=== PATIENT | female | born 1985 | race Caucasian/White ===

== ENCOUNTER 2016-05-08 15:58 | Inpatient (IN) | payer OTHER ==
[~2016-05-08] VITALS: Ht 170.2 cm; Wt 81.6 kg
[~2016-05-08 15:58] MED LIST: ABILIFY10 M1 PO; DELTASONE20 MG PO; GABAPENTIN300 M2 PO; OMEPRAZOLE40 M1 PO; WELLBUTRIN SR150 M1 PO
--- NOTE | 2016-05-08 16:10 | ED PSY CRISIS COLLATERAL NOTE ---
Collateral Note Collateral Note Family/Inform/Gabi Contacts: Pt's out pt provider Ede Coburn Aprn informed that pt is coming to the ED and sent the following clinical in an email for collateral information: "Rani Pastrana is a 31yo MCF with a h/o ETOH use d/o in remission (Since ) , Bipolar Disorder, and PTSD. She has no inpatient history but was in Dual dx IOP from 09/10-11/11. She called me today from her job and states she is feeling increasingly manic with decreased sleep. She has had urges to cut and to consume alcohol which she has been able to keep at bay but feels less able to do so. She was recently stated on a low dose of Tegretol when I saw her on 05/03 and during our conversation today we had agreed to increase to 200mg BID with the hopes of avoiding hospitalization. At that point the safety plan was to contact her sponsor or call 911/go to ED if urges returned/got worse. She subsequently spoke to her sponsor who convinced her to go to the hospital after work for crisis eval and then called me. She anticipates she will arrive at approximately 1600. No h/o of suicide attempt but was a cutter for most of her teens and these behaviors returned briefly in summer. Her father attempted suicide and so did maternal uncle. Unknown if father's by OD was intentional or accidental. Of note her significant other Sage was recently incarcerated and the patient is now in the home alone. I feel she would benefit from inpatient stay or IOP at this time. While she may be a soft admit she definitely needs a med adjustment so inpatient may be safer. She is not endorsing SI but rather is high risk for ETOH relapse and cutting behaviors. Ede Coburn MA, MSN, FUEL MANAGER"
--- NOTE | 2016-05-08 16:12 | NUR ---
PT TO ED C/O "MANIC EPISODE" SINCE SUNDAY. STATES SHE HAS THOUGHTS OF WANTING TO HURT HERSELF "I COULD VERY EASILY CUT MYSELF". DENIES HI. STATES THIS HAPPENED LAST AUGUST WELL. DENIES ETOH OR DRUG USE, STATES CLEAN FOR 8 MONTHS. PT SPOKE WITH LU IN OUT PATIENT PSYCH AND WAS ADVISED TO COME TO ED. PT CALM/COOPERATIVE. WAS ADVISED TO COME TO ED.
--- NOTE | 2016-05-08 16:22 | ED PSYCHIATRIC COMPLAINT ---
History of Present Illness General Chief Complaint: Psychiatric Related Complaint Stated Complaint: "IM HAVING MANIC SYMPTOMS, WANTING TO HURT MYSELF" Source: patient, old records Exam Limitations: no limitations Vital Signs & Intake/Output Vital Signs & Intake/Output Vital Signs Date Time Temp Pulse Resp B/P Pulse O2 O2 Flow FiO2 Ox Delivery Rate 05/082 97.3 60 111/72 05/08 2000 98.2 80 20 125/68 96 Room Air 05/08 1922 98 Room Air 05/08 1608 98.1 82 20 133/74 96 Room Air ED Intake and Output 05/09 0000 05/08 1200 Intake Total Output Total Balance Patient 180 lb Weight Allergies Coded Allergies: lamotrigine (From LAMICTAL) (Severe, 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) Reconcile Medications Bupropion HCl (Bupropion XL) 300 MG TAB.ER.24H 1 TAB PO DAILY MENTAL HEALTH ( Reported) Carbamazepine (Tegretol XR) 100 MG TAB.ER.12H 1 TAB PO QPM MENTAL HEALTH ( Reported) Gabapentin 300 MG CAPSULE 1 CAP PO TID ANXIETY (Reported) Multivitamin (Multi-Day Vitamins) 1 EACH TABLET 1 TAB PO DAILY SUPPLEMENT ( Reported) Noreth-Ethinyl Estradiol/Iron (Femcon Fe Chewable Tablet) 0.4-35(21) TAB.CHEW 1 TAB PO DAILY CONTROL (Reported) Mccune-3/Dha/Epa/Fish Oil (Fish Oil 1,000 MG Softgel) (Unknown Strength) CAPSULE (Unknown Dose) PO DAILY SUPPLEMENT (Reported) Omeprazole 40 MG CAPSULE.DR 1 CAP PO DAILY GI (Reported) Trazodone HCl (Unknown Strength) TABLET (Unknown Dose) PO QPM SLEEP (Reported ) Triage Note: PT TO ED C/O "MANIC EPISODE" SINCE SUNDAY. STATES SHE HAS THOUGHTS OF WANTING TO HURT HERSELF "I COULD VERY EASILY CUT MYSELF". DENIES HI. STATES THIS HAPPENED LAST AUGUST WELL. DENIES ETOH OR DRUG USE, STATES CLEAN FOR 8 MONTHS. PT SPOKE WITH LU IN OUT PATIENT PSYCH AND WAS ADVISED TO COME TO ED. PT CALM/COOPERATIVE. WAS ADVISED TO COME TO ED. Triage Nurses Notes Reviewed? yes Onset: Gradual Severity: severe Severity Numbers: 10 : No Patient currently breastfeeds: No HPI: Patient is a 31-year-old female with past medical history of EtOH abuse, bipolar disorder and PTSD who presents emergency room stating that for the past week patient has been complaining of worsening depression and thoughts of harming herself. Patient states that last week her boyfriend was incarcerated where she states that the depression is worse because of this. Patient states that she has a history of cutting herself and that is her plan of harming herself. Patient denies any illicit drug use or alcohol use and she's been sober for 8 months. Patient lives in a private residence with 2 roommates. Denies any auditory or visual hallucinations. Patient is compliant with her medications of Tegretol and Wellbutrin. The patient called her [employer] Lu Coburn today for concerns of harming herself which he advised patient to PRESENT to the emergency room where she drove here herself. Patient does complain of generalized headache with no nausea vomiting denies any abdominal pain. Denies any . Patient however did not attempt to cut herself (VALERIANO BAUTISTA) Past History Travel History Traveled to [place] past 21 day No Medical History Any Pertinent Medical History? 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 No (VALERIANO BAUTISTA) Review of Systems Review of Systems Constitutional: Reports: no symptoms. EENTM: Reports: no symptoms. Respiratory: Reports: no symptoms. Cardiovascular: Reports: no symptoms. GI: Reports: no symptoms. Genitourinary: Reports: no symptoms. Musculoskeletal: Reports: no symptoms. Skin: Reports: no symptoms. Neurological/Psychological: Reports: see HPI. Hematologic/Endocrine: Reports: no symptoms. Immunologic/Allergic: Reports: no symptoms. All Other Systems: Reviewed and Negative (VALERIANO BAUTISTA) Physical Exam Physical Exam General Appearance: no apparent distress, alert, comfortable Neurological/Psychiatric: no motor/sensory deficits, awake, alert Appearance/Memory/Insight: appropriate appearance, appropriate insight, denies illness Behavoir/Eye Contact/Speech: cooperative, normal speech Thoughts/Hallucinations: normal thought pattern, no apparent hallucination Comments: Well-developed well-nourished person in no acute distress HEENT: Normal EENT exam, extraocular motion intact, no nystagmus. Pupils equally round and reactive to light and accommodation. Nose is atraumatic. External auditory canal and Tympanic membranes clear. Pharynx normal. No swelling or edema. Neck: Supple, no lymphadenopathy, normal range of motion without pain or tenderness Back: Nontender, no CVA tenderness. Cardiovascular: Regular rate and rhythms no murmurs rubs or gallops, normal JVP Respiratory: Chest nontender. No respiratory distress.breath sounds clear to auscultation bilaterally Abdomen: Soft, nontender nondistended, no appreciable organomegaly. Normal bowel sounds. No ascites Extremity: No edema, no calf tenderness to palpation, normal and equal pulses. Neuro: Alert oriented x3, motor sensory normal, cranial nerves II through XII grossly intact. Skin: No appreciable rash on exposed skin, skin is warm and dry. Psych: Mood and affect is normal, memory and judgment is normal. SAD PERSONS SAD PERSONS Response Value Depression/Hopelessness? yes 2 Previous Attempts/Psych Care yes 1 Single//? yes 1 Organized/Serious Attempt yes 2 Social Support? has support 0 Stated Future Intent? yes 2 Total 8 SAD PERSONS Done? yes (SABA PARRISH,VALERIANO) Progress Differential Diagnosis: drug intoxication, drug overdose, drug withdrawal, electrolyte abnormality, encephalitis, hypoglycemia, hypothyroidism, IC hem/mass /tumor, meningitis, BIPOLAR DISORDER Plan of Care: Orders Procedure Date/time Status Regular Diet 05/09 B Active Vital Signs 05/09 2243 Active Inpt Psych Teach/Educate 05/09 2243 Active Nutritional Intake, Monitor 05/09 2243 Active Inpt Psych Auricular Acupunctu 05/09 2243 Active CARBAMAZEPINE 05/08 2057 Complete Lab Add-on Test 05/08 2040 Active Admit to inpatient psych 05/08 2030 Active Patient Data - inpatient psych 05/09 2027 Active Admit to inpatient psych 05/09 2027 Active EKG 05/09 2027 Active Intake & Output 05/08 1714 Complete TSH REFLEX 05/08 1650 Complete Continuous Observation Monitor 05/08 1621 Complete URINE DRUG SCREEN FOR ER ONLY 05/08 162 Complete URINALYSIS 05/08 162 Complete HUMAN BETA HCG SCREEN 05/08 162 Complete ETHANOL 05/08 1621 Complete COMPREHENSIVE METABOLIC PANEL 05/08 1621 Complete CBC WITHOUT DIFFERENTIAL 05/08 162 Complete ED CRISIS PSYCH CONSULT 05/08 1621 Active Vital Signs 05/08 UNK Complete Nursing Misc 05/08 UNK Active Alternative Nursing Therapy 05/08 UNK Complete Activity/Ambulation 05/08 UNK Complete Current Medications Sig/Oliverio Start time Last Medication Dose Stop Time Status Admin Fish Oil 1,050 MG DAILY 05/09 1000 AC (Mccune-3) Multivitamins 1 TAB DAILY 05/09 1000 AC Therapeutic (Theragran-M Vitamins Tabs) Omeprazole 40 MG DAILY AC 05/09 0700 AC (Prilosec) Acetaminophen 650 MG Q6-PRN PRN 05/08 2044 AC (Tylenol) Al Hydroxide/Mg 30 ML Q4-6 PRN PRN 05/08 2044 AC Hydroxide (Maalox Plus) Hydroxyzine HCl 50 MG Q6-PRN PRN 05/08 2044 AC (Atarax) Olanzapine 2.5 MG Q4 HRS NEEDED PRN 05/08 2044 AC (Zyprexa 2.5MG) Trazodone HCl 50 MG AT BEDTIME NEED.. 05/08 2044 AC (Desyrel) Laboratory Tests 05/08/16 2110: Carbamazepine < 3.0 L 05/08/16 1650: Serum Alcohol < 10.0 05/08/16 165: Anion Gap 8, Estimated GFR > 60, BUN/Creatinine Ratio 13.8, Glucose 82, Calcium 9.4, Total Bilirubin 0.5, AST 23, ALT 29, Alkaline Phosphatase 45, Total Protein 7.1, Albumin 3.8, Globulin 3.3, Albumin/Globulin Ratio 1.2, TSH &T3 &Free T4 Intrp 1.480, Total Beta HCG NEGATIVE, CBC w Diff NO MAN DIFF REQ, RBC 4.51, MCV 88.9, MCH 29.7, RDW 12.4, MPV 8.3, Gran % 58.5, Lymphocytes % 32.3, Monocytes % 5.9, Eosinophils % 2.6, Basophils % 0.7, Absolute Granulocytes 4.3, Absolute Lymphocytes 2.4, Absolute Monocytes 0.4, Absolute Eosinophils 0.2, Absolute Basophils 0, PUBS MCHC 33.5, Urine Opiates Screen < 100.00, Methadone Screen < 40, Barbiturate Screen < 60, Ur Phencyclidine Scrn < 6.00, Amphetamines Screen 243, U Benzodiazepines Scrn < 85, Urine Cocaine Screen < 50, Urine Cannabis Screen < 5.00, Urine Color STRAW, Urine Clarity CLEAR, Urine pH 6.0, Ur Specific [place] <= 1.005, Urine Protein NEG, Urine Ketones 15 H, Urine Nitrite NEG, Urine Bilirubin NEG, Urine Urobilinogen 0.2, Ur Leukocyte Esterase NEG, Ur Microscopic EXAM NOT REQUIRED, Urine Hemoglobin NEG, Urine Glucose NEG Patient initially was describing symptoms of a headache which ibuprofen was administered. Crisis evaluated patient and advised patient to be admitted to Inpatient Psychiatry. (VALERIANO BAUTISTA) Departure Departure Disposition: STILL A PATIENT Condition: Stable Clinical Impression Primary Impression: Bipolar disorder Referrals: SHAD PURCELL MD (PCP/Family) Departure Forms: Customer Survey General Discharge Information Psych Admission Note Psychiatric Admission: I have seen and evaluated LUISITO DIGGS. I have also reviewed all the pertinent lab results and diagnostic results. LUISITO DIGGS will be admitted to our inpatient Psychiatric unit for treatment and care. (VALERIANO BAUTISTA) Departure Time of Disposition: 2142 PA/DISPENSARY TECHNICIAN Co-Sign Statement Statement: ED Attending supervision documentation- [] I saw and evaluated the patient. I have also reviewed all the pertinent lab results and diagnostic results. I agree with the findings and the plan of care as documented in the PA's/DISPENSARY TECHNICIAN's documentation. [X] I have reviewed the ED Record and agree with the PA's/DISPENSARY TECHNICIAN's documentation. [] Additions or exceptions (if any) to the PAs/DISPENSARY TECHNICIAN's note and plan are summarized below: [] (SREEDHAR TOVAR,LEROY) Critical Care Note Critical Care Note Critical Care Time: 30-74 min (VALERIANO BAUTISTA)
[2016-05-08] MEDS ORDERED: TRAZODONE HCL100 M1 PO (16:23)
[2016-05-08] MEDS ORDERED: TEGRETOL XR100 MG PO (16:24)
[2016-05-08] MEDS ORDERED: BUPROPION XL300 M1 PO (16:24)
[2016-05-08] MEDS ORDERED: MULTI-DAY VITA1 EACH PO (16:25)
[2016-05-08] MEDS ORDERED: FEMCON FE PO (16:25)
[2016-05-08] MEDS ORDERED: FISH OIL 1,001000 MG PO (16:25)
--- NOTE | 2016-05-08 16:54 | NUR ---
LABS DRAWN AND SENT TO LAB' [facility]
--- NOTE | 2016-05-08 16:54 | NUR ---
URINE TRIO SENT TO LAB
--- NOTE | 2016-05-08 17:13 | NUR ---
LAP TOP IN VALUABLES BAG TO ED SAFE
[2016-05-08 17:21] LABS: ABSOLUTE BASOPHIL COUNT 0 /CUMM (0.0-0.2); ABSOLUTE EOSINOPHIL COUNT 0.2 /CUMM (0.0-0.7); ABSOLUTE GRANULOCYTE CT 4.3 /CUMM (1.4-6.5); ABSOLUTE LYMPH COUNT 2.4 /CUMM (1.2-3.4); ABSOLUTE MONOCYTE COUNT 0.4 /CUMM (0.10-0.60); BASOPHIL % 0.7 % (0.0-2.0); EOSINOPHIL % 2.6 % (0-5); GRANULOCYTE % 58.5 % (42.2-75.2); HEMATOCRIT 40.1 % (37-47); MEAN CORPUSCULAR HGB 29.7 PG (27.0-31.0); MEAN CORPUSCULAR HGB CONC 33.5 G/DL (33.0-37.0); MEAN CORPUSCULAR VOLUME 88.9 FL (81.0-99.0); MEAN PLATELET VOLUME 8.3 FL (7.4-10.4); PLATELET COUNT 237 /CUMM (130-400); RBC DISTRIBUTION WIDTH 12.4 % (11.5-14.5); RED BLOOD CELL CT 4.51 /CUMM (4.20-5.40); WHITE BLOOD CELL COUNT 7.4 /CUMM (4.8-10.8)
--- NOTE | 2016-05-08 18:47 | NUR ---
MEDICATED WITH MOTRIN PER eMAR FOR HEADACHE. OFFERS NO OTHER COMPLAINTS AT THIS TIME. CALM AND COOPERATIVE, UNDERSTANDS PLAN AND INDICATION FOR SITTERS PRESENCE FOR SAFETY. READING BOOK AT THIS TIME
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
--- NOTE | 2016-05-08 22:17 | NUR ---
REPORT GIVEN TO RECEIVING RN AND DISTRIBUTION CALLED
[2016-05-08 22:42] VITALS: BP 111/72
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
[2016-05-09 07:38] VITALS: BP 104/63
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
[2016-05-09 11:29] VITALS: BP 108/49
--- NOTE | 2016-05-09 12:15 | SOCIAL WORKER PROG NOTE PSYCH ---
Social Work Progress Note Progress Note Met with pt individually. Pt expresses that she continues to feel like her thoughts are racing and she is having difficulty focusing. She identified that she finds it helpful that she stays busy while here as this helped her to keep more focus. Pt identifies that her main goal while on CPS is to get her medication stabilized so that she does not feel "so manic". Pt reports that she slept better with the benadryl and she is looking forward to meeting with the MD to further discuss her meds. Pt denies any SI or thoughts of self harm at this time.
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
--- NOTE | 2016-05-09 14:19 | NUR ---
out in community going to groups. appears to be engaged in tx program. Mood is stable, euthymic affect. denied toughts of self harm when asked.
[2016-05-09 16:08] VITALS: BP 119/74
--- NOTE | 2016-05-09 17:05 | History & Physical ---
General Information and HPI History of Present Illness: Patient is a 31-year-old female admitted to the inpatient psychiatric unit due to worsening symptoms of her bipolar disorder. I saw and examined the patient for routine medical history and physical. She offers no complaints at this time. She denies nausea vomiting. Denies abdominal pain. Denies chest pain or palpitations. Denies shortness of breath. Denies heat or cold intolerance. Other 12 Point review of systems noncontributory. 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 Home Med list Bupropion HCl (Bupropion XL) 300 MG TAB.ER.24H 1 TAB PO DAILY MENTAL HEALTH ( Reported) Carbamazepine (Tegretol XR) 100 MG TAB.ER.12H 1 TAB PO QPM MENTAL HEALTH ( Reported) Gabapentin 300 MG CAPSULE 1 CAP PO TID ANXIETY (Reported) Multivitamin (Multi-Day Vitamins) 1 EACH TABLET 1 TAB PO DAILY SUPPLEMENT ( Reported) [place]-Ethinyl Estradiol/Iron (Femcon Fe Chewable Tablet) 0.4-35(21) TAB.CHEW 1 TAB PO DAILY CONTROL (Reported) [place]-3/Dha/Epa/Fish Oil (Fish Oil 1,000 MG Softgel) (Unknown Strength) CAPSULE (Unknown Dose) PO DAILY SUPPLEMENT (Reported) Omeprazole 40 MG CAPSULE.DR 1 CAP PO DAILY GI (Reported) Trazodone HCl (Unknown Strength) TABLET (Unknown Dose) PO QPM SLEEP (Reported ) Past History Travel History Traveled to [place] past 21 day No Medical History Neurological: NONE EENT: NONE Cardiovascular: NONE Respiratory: NONE Gastrointestinal: GERD Hepatic: NONE Renal: NONE Musculoskeletal: NONE Psychiatric: alcohol dependence, anxiety, bipolar disease, depression, insomnia Endocrine: NONE Blood Disorders: NONE Cancer(s): NONE COGNOS BI DEVELOPER/Reproductive: NONE Other Medical Hx: non-contributory, though patient's severe body rash related to prescription of Lamictal is worthy of being repeated/emphasize here Isolation History: Standard Surgical History Surgical History: non-contributory Past Family/Social History Family History Relations & Conditions if any MOTHER Relation not specified for: Diabetes mellitus in mother Heart disease Psychosocial History ETOH Use: denies use Illicit Drug Use: denies illicit drug use Employment History 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 Review of Systems Review of Systems Constitutional: Denies: see HPI. Exam & Diagnostic Data Last 24 Hrs of Vital Signs/I&O Vital Signs Date Time Temp Pulse Resp B/P Pulse O2 O2 Flow FiO2 Ox Delivery Rate 05/09 1608 79 119/74 05/09 1129 75 108/49 05/09 0738 97.8 86 104/63 05/08 2242 97.3 60 111/72 05/08 2000 98.2 80 20 125/68 96 Room Air 05/08 1922 98 Room Air Intake & Output 05/09 1600 05/09 0800 05/09 0000 Intake Total Output Total Balance Patient 81.647 kg Weight Physical Exam General Appearance Alert, Oriented X3, Cooperative, No Acute Distress Skin No Rashes HEENT Atraumatic, PERRLA, EOMI, Mucous Membr. moist/pink Neck Supple, No JVD, No thryomegaly Cardiovascular Regular Rate, Normal S1, Normal S2, No Murmurs Lungs Clear to Auscultation, Normal Air Movement Abdomen Normal Bowel Sounds, Soft, No Tenderness, No Hepatospenomegaly Neurological Cranial Nerves II through XII: Intact Extremities No Clubbing, No Cyanosis, No Edema, Normal Pulses Vascular Normal Pulses Assessment/Plan Assessment: 31yo female with hx of bipolar disorder. Currentlynshe has no active medical issues. Continue management of her psychiatric issues per the treating psychiatrist. Please recall as needed if any medical problems arise. As Ranked By This Provider Problem List: 1. Bipolar disorder Miscellaneous Miscellaneous Documentation Attending Case Discussed With: ARNEL TOVAR,ANU Lovett Primary Care Physician: SHAD PURCELL MD Patient sees these Specialists None Level of Patient Care: DAISY Kaiser
[2016-05-09 19:41] VITALS: BP 134/74
--- NOTE | 2016-05-09 20:42 | NUR ---
Pt is out in the kt playing board games with the male pt's. Pt is loud swering most of the time. came for vital signs c/o no pain. No behavioral issues noted during the day. Will conitnue to monitor the pt overnight.
--- NOTE | 2016-05-10 03:53 | NUR ---
SLEPT WELL AFTER SECOND DOSE OF MELATONIN.
[2016-05-10 07:42] VITALS: BP 126/78
--- NOTE | 2016-05-10 10:43 | IP INCIDENTAL NOTE PSYCH ---
Incidental Note Notation: Repeat serum Na+ this AM was up to 136; in the E.D. BAR EXAMINER sodium had been 133 ; we will continue Tegretol as currently prescribed (300mg/day with initial carbamazepine level to be drawn in AM on 05/12/2016.
--- NOTE | 2016-05-10 11:35 | NUR ---
PT IS STABLE WITH BRIGHT, FULL RANGE OF AFFECT. VISIBLE WITHIN THE COMMUNITY AND INTERACTING WITH PEERS/STAFF MEMBERS. PLAYING GAMES WITH PEERS AND REPORTED ENJOYING HERSELF. ATTENDING GROUPS AND COMPLIANT/COOPERATIVE. DENIES SI/HI TO THIS MHW. VS ARE STABLE.
[2016-05-10 12:24] VITALS: BP 123/72
--- NOTE | 2016-05-10 15:29 | SOCIAL WORKER PROG NOTE PSYCH ---
Social Work Progress Note Progress Note Pt reports a having a headache, and is worried it is medication related, she identifed many stressors elading up to admission, but feels safe and wants to address manic symptoms. Pt is calm and insightful. She states her sponsor Kristina can be involved in her treatment and signed a release for her to particpate in a family session any time , Kristina will be available by phone.
[2016-05-10 15:42] VITALS: BP 120/76
--- NOTE | 2016-05-10 18:43 | CP SOUTH PROGRESS NOTE PSYCH ---
Psych (Inpt) Progress Note Progress Note Include the following elements, when applicable: Involvement in the active treatment of the patient with behavioral observations of the patient and the patient's response to the treatment. Review of the ongoing treatment process in the context of the treatment plan. Indication of how multi-disciplinary staff members are carrying out the treatment plan. Plans for future interventions and recommendations for revision of the treatment plan. Liaison with other physicians/providers. Progress Note: PSYCHIATRIST NOTE (05/10/2016): I discussed this patient's progress thus far, current mental status and discharge planning with staff team in the daily morning ITTM and also met with her again in individual session. Patient's affect is slowly improving; she denies any problems/side effects on current dose of carbamazepine (titrated up to 300mg/day). 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
[2016-05-10 19:27] VITALS: BP 123/73
--- NOTE | 2016-05-10 21:34 | NUR ---
PT IS VISIBLE ON UNIT, SOCIALIZING WITH PEERS AND WATCHING TV. HAD A VISITOR THROUGHOUT THE EVENING. VERY PLEASANT AND COOPERATIVE WITH STAFF. ATTENDED WRAP UP MEETING AND PARTICIPATED. NO COMPLAINTS OR SI REPORTED. PT HAS A STABLE MOOD AND FULL RANGE AFFECT.
--- NOTE | 2016-05-11 06:56 | NUR ---
PT ASLEEP SHORTLY AFTER MIDNITE AND APPEARED TO SLEEP WELL. PT HAS MENSES.
[2016-05-11 07:52] VITALS: BP 120/64
--- NOTE | 2016-05-11 10:59 | SOCIAL WORKER PROG NOTE PSYCH ---
Social Work Progress Note Progress Note Rani and I discussed having a meeting with her AA sponsor Kristina. Rani stated she is not available to come in, but is willing to have a phone conference. She has been Rani's sponsor for the 7 months that Rani has been sober. Rani said since her med changes here, she has started feeling more even in mood and stable. She is sleeping and reported no racing thoughts at this time. 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 I told her that having an individual therapist would be beneficial since she only sees Ede Coburn APRN once a month. She said she was connected to a therapist in [facility] and was seeing him 1x a month, but was not that happy with him. She is interested in looking for another therapist. I gave her a list of therapists in the area and offered to help try and connect her to someone before she leaves. Her biggest concern at this point in time is staying busy. She works 8:30-5pm M-F and goes to AA nightly. She has down time on the weekends, although reports she goes to 2 meetings a day on weekends. Her boyfriend of 7 months just went to snf for selling drugs. She admits that she has alot of support through AA, but tends to isolate. We called Kristina together. Kristina was very supportive of Rani offering for her to even stay at her house if needed. She is trying to keep her busy and mentioned several committments that she is getting involved with. She goes to 4- 5 meetings a week with Rani. Talked about her work on her substance recovery as well as her mental health. I called a couple of therapists in the area, but have not been able to secure one yet that can see her.
[2016-05-11 12:11] VITALS: BP 132/84
--- NOTE | 2016-05-11 13:09 | NUR ---
PT IS A/OX3. PT HAS FULL RANGE AFFECT. PT IS INTERACTING WITH PEERS IN COMMUNITY KITCHEN. PT STATES SHE IS SAD SOME OF HER PEERS ARE LEAVING BECAUSE SHE BECAME FRIENDS WITH THEM. PT COMPLYING WITH MEDICATION AND GOING TO GROUPS. PT DENIES SI/HI/BONDS AT THIS TIME. WILL CONTINUE TO MONITOR.
[2016-05-11 16:05] VITALS: BP 145/97
[2016-05-11 19:41] VITALS: BP 133/79
--- NOTE | 2016-05-11 19:44 | CP SOUTH PROGRESS NOTE PSYCH ---
Psych (Inpt) Progress Note Progress Note Include the following elements, when applicable: Involvement in the active treatment of the patient with behavioral observations of the patient and the patient's response to the treatment. Review of the ongoing treatment process in the context of the treatment plan. Indication of how multi-disciplinary staff members are carrying out the treatment plan. Plans for future interventions and recommendations for revision of the treatment plan. Liaison with other physicians/providers. Progress Note: PSYCHIATRIST NOTE (05/11/2016): I discussed this patient's progress to date, current mental status, treatment and discharge planning with staff team in the daily morning ITTM and also met with her again myself in individual session on this date. Patient denies any problematic side effects, dizziness, sedation, ataxia, etc., on current dose to carbamazepine titrated up to 300mg/day and will have a serum level of this medication drawn tomorrow AM, 05/12/2016, prior to planned discharge to return to ongoing treatment with Ede Martines APRN in [facility]; patient is also interested in switching her counselling appointments from Mr. Mccann, hopefully to Mr. Martines or another outpatient clinician. Patient reports gradual but significant improvement in her mood and increasing desire to "get back to work" again; she has no reservations about returning to or being able to perform her job beginning next week. She denies active suicidal ideation and believes herself capable of contacting [facility] and/or the Crisis service clinician or of coming directly into the E.D. for evaluation should she come to believe herself at risk for self-harm/self-mutilation ( "cutting" behavior).
--- NOTE | 2016-05-11 20:54 | NUR ---
PT IS VISIBLE ON UNIT, SOCIALIZING WITH PEERS AND PLAYING CARDS IN KITCHEN. PT JOINED PEERS IN DOING YOGA IN GROUP ROOM. VERY PLEASANT AND COOPERATIVE. NO COMPLAINTS OR SI REPORTED. PT HAS A STABLE MOOD AND FULL RANGE AFFECT.
--- NOTE | 2016-05-12 05:59 | NUR ---
PT APPEARED TO SLEEP WELL.
[2016-05-12 07:49] VITALS: BP 127/74
[2016-05-12] MEDS ORDERED: MELATONIN5 M7 PO (10:59)
[2016-05-12] MEDS ORDERED: GABAPENTIN300 M2 PO (10:59)
[2016-05-12] MEDS ORDERED: CARBAMAZEPINE100 M2 PO ×2 (10:59)
[2016-05-12] MEDS ORDERED: WELLBUTRIN SR100 M2 PO (10:59)
--- NOTE | 2016-05-12 11:30 | NUR ---
Pt is A&O X 3, compliant with medication and group therapies. Pt is being discharged today, will be making appointment for out patient program. Pt verbalizes the understanding of the discharge, follow-up and aftercare programs.Demonstrates also good insight of the mental illness and the need for medication compliance. Acknowledges the receipt of the emergency phone numbers and to use them when feeling overwhelmed or out of control. Pt denies thouhgt of self-harm and to someone else.
[2016-05-12] MEDS ORDERED: WELLBUTRIN SR200 M2 PO (11:53)
--- NOTE | 2016-05-12 11:59 | SOCIAL WORKER PROG NOTE PSYCH ---
Social Work Progress Note Progress Note Rani has outpatient appts. scheduled with [facility] for 05/22 at 12:30 with Mely and a med appt. with Ede Coburn APRN for 05/29 at 2:30. Rani reports feeling well on her current meds. No urges for self-harm and feel her mood is stable. She was given the list of therapists that she can continue to call. I informed her of which ones I reached out to all ready. When asked what she plans to do this weekend, she said that she planned to get a pedicure and get her hair done. She wants to spend the weekend relaxing. She will attend [facility] and spend time with her sponsor. She asked for a letter regarding her time here. This was provided to her. Rani's car is here and she plans to drive home.
[2016-05-12 12:30] VITALS: BP 122/66
--- NOTE | 2016-05-12 12:43 | CP SOUTH PROGRESS NOTE PSYCH ---
Psych (Inpt) Progress Note Progress Note Include the following elements, when applicable: Involvement in the active treatment of the patient with behavioral observations of the patient and the patient's response to the treatment. Review of the ongoing treatment process in the context of the treatment plan. Indication of how multi-disciplinary staff members are carrying out the treatment plan. Plans for future interventions and recommendations for revision of the treatment plan. Liaison with other physicians/providers. Progress Note: PSYCHIATRIST NOTE (DISCHARGE), 05/12/2016: I discussed this patient's progress to date, current mental status and discharge plan with staff team in the daily morning ITTM and also met with her again myself in individual session prior to discharging her to resume outpatient visits with Ede Martines APRN, in [facility]; however, patient had been surprized and disappointed to learn from OPS that Mr. Martines would be transferring over to the department consultation service; but she will discuss this with him and see if he is maintaining a small outpatient case load that she be allowed to continue with him as prescriber and therapist or at least as prescribe with another OPS therapist. Serum carbamazepine level today was only 4.3mcg/ml but continues to be well -tolerated at dose of 300mg/day; I would recommend repeating Tegretol level in 1 -2 weeks prior to considering further upward dose titration in order to limit necessary dose and minimize risks of significant enzyme self-induction by this medication. Patient is tolerating the switchover from Wellbutrin XL to SR and reduction in dose from 300mg to 200mg/day well with euthymic mood and improved sleep with the help of melatonin at HS titrated up from 3mg to 5mg/night. Patient has not required even one dose of PRN neuroleptic medication during this admission. She currently shows no evidence of suicidal or homicidal ideation, plan, intent or impulses and is clear about how to proceed if she experiences impulses to self-harm/suicide in future. I have on above date called in prescriptions: Tegretol, 100mg: i daily in AM ii every evening (total 300mg/day); #90 with no refill Buproprion SR, 200mg: i daily in AM (200mg/day); #30 with no refill Neurontin, 300mg: i PRN for anxiety/insomnia (max. 600mg/day); #60 with no refill (patient also plans to purchase melatonin, 5mg, OTC and take one HS PRN DFA) Patient is not a smoker and has no intention of starting to smoke after discharge from [facility].)
--- NOTE | 2016-05-12 12:44 | DISCHARGE SUMMARY REPORT-PSYCH ---
Visit Information Visit Dates/Diagnosis' Admission Date: 05/08/16 Discharge Date: 05/12/16 Reason for Admission: "I've been having trouble sleeping, racing thoughts and urges to 'cut' [herself] ." Psy Discharge Primary Diag: Bipolar Disorder, Depression Psy Discharge Secondary Diag: Alcohol Dependence Hospital Course Significant Lab Findings: glucose = 102; sodium = 133, 136, 132; chloride, 96; CBC--WNL; urinalysis-- ketones 15; CHANELL = less than 10.0; urine for drugs of abuse--negative (for details of all normal range laboratory data from this admission, see the electronic medical record) Course Complications: none Consultations: patient was seen for an admission medical H&P by Dr. 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 Patient had a several year history of increasingly severe depressive moods and brief intervals of pressured and sometimes more productive behavior (?Bipolar II Disorder). Lu Martines APRN, patient's outpatient prescriber, had started a clinical trial of Tegretol, and we continued this, titrating to 300mg/day without side effects; though initial carbamazepine level was low at 4.3mcg/ml, we decided to continue the 300mg daily and recommend a repeat level prior to further upward dose titration given the ryjz-[id number] properties so prominent with this medication; it is better to stay with as low a dose as possible. Dose of Wellbutrin was reduced from 300mg to 200mg/day and switched from XL to SR with associated improvement in sleep/insomnia and no regression in mood thus far; sleep onset also appeared to be enhanced/facilitated by introduction and upward titration of melatonin to 5mg HS. Patient's mood gradually but significantly improved and on date of discharge there was no evience of suicidal or homicidal ideation, plans, intent or impulses, and patient was well aware of her safety plan should she feel in future at risk for self-harm/cutting behavior. Discharge HBIPS - Tobacco Use Treatment Offered Post DC Medications Offered: NA-No Tob Use >30 days Post DC Tobacco Treatment Plan: NA-No Tobacco use >30days - EtOH/Drug Use D/O Treatment Offered Post DC Medications Offered: Ref Med EtOH/Drug Use D/O Post DC EtOH/SubAbuse TX Plan: [place] SubAbuse/Dual IOP (OPS visits and active A.A. f/u) Metabolic Screening - Screen if on a Neuroleptic Medication - Metabolic screening should include: - Blood Pressure, BMI, Glucose or Hgb A1c, & a - Lipid profile from within the past 365 days. Metabolic Screening ([X]) Not Applicable, patient not on a neuroleptic. OR () Patient on a neuroleptic(s) . Enter below results for Glucose or Hemoglobin A1C, and lipid panel if obtained during the last 365 days. BMI: 28.200 Blood Pressure: 122/66 Laboratory Results (If applicable): Discharge Instructions General Discharge Information Discharge Medications: Discharge Medications (dose, route, frequency, indications): START taking these NEW Home Medications: Carbamazepine Dose: ORAL, 2000 for mood Qty: 30 Printed (Carbamazepine) 100 200 Milligram disorder Refills: 0 MG TAB.CHEW Last Taken: Time:05/11/16 Time:2016 Carbamazepine Dose: ORAL, DAILY @8 AM for Qty: 30 Printed (Carbamazepine) 100 100 Milligram mood disorder Refills: 0 MG TAB.CHEW Gabapentin Dose: ORAL, Q4H as needed for Qty: 60 Printed (Gabapentin) 300 MG 300 Milligram ANXIETY/INSOMNIA Refills: 0 CAPSULE Melatonin Dose: ORAL, 2200 for sleep Qty: 1 Printed (Melatonin) 5 MG 5 Milligram induction Refills: 0 TABLET Last Taken:05/11/16 Time:2150 Bupropion HCl Dose: ORAL, DAILY for Qty: 30 Called in to (Wellbutrin Sr) 200 1 Tablet depression Refills: 0 Pharm 1 MG TABLET.ER Last Taken:05/12/16 Time:0848 CONTINUE taking these Home Medications: Omeprazole (Omeprazole) Dose: ORAL, DAILY for GI 40 MG CAPSULE.DR 1 Capsule Last Taken:05/12/16 Time:0618 [place]-3/Dha/Epa/Fish Oil Dose: ORAL, DAILY for (Fish Oil 1,000 MG Unknown Dose SUPPLEMENT Softgel) (Unknown Last Taken:05/12/16 Strength) CAPSULE Time:0848 [place]-Ethinyl Estradiol Dose: ORAL, DAILY for /Iron (Femcon Fe 1 Tablet CONTROL Chewable Tablet) 0.4-35 PER PT (21) TAB.CHEW STOP taking these DISCONTINUED Home Medications: Gabapentin (Gabapentin) 300 MG Dose: ORAL, THREE TIMES DAILY for CAPSULE 1 Capsule ANXIETY Reason Stopped: Med no longer needed Trazodone HCl (Trazodone HCl) Dose: ORAL, Every night for SLEEP (Unknown Strength) TABLET Unknown Dose Reason Stopped: Med no longer needed Carbamazepine (Tegretol XR) Dose: ORAL, Every night for MENTAL 100 MG TAB.ER.12H 1 Tablet HEALTH Reason Stopped: Changed how to take Bupropion HCl (Bupropion XL) Dose: ORAL, DAILY for MENTAL HEALTH 300 MG TAB.ER.24H 1 Tablet Reason Stopped: Med no longer needed Multivitamin (Multi-Day Dose: ORAL, DAILY for SUPPLEMENT Vitamins) 1 EACH TABLET 1 Tablet Reason Stopped: Med no longer needed 1: [facility], [address] [place] [id number] [phone] Your Preferred Pharmacy [facility] [address] [place] [address] [phone] Multiple Neuroleptics: ([X]) Not Applicable OR Document below three failed attempts at monotherapy, or a plan to taper to monotherapy, or augmentation of Clozapine. () Patient's Diet: regular Patient's Activity: without restrictions DC Disposition: to home with two female roommates in [place], [place]. Recommendations: would recommend repeating serum carbamazepine level in 1-2 weeks and, if subtherapeutic, not increasing dose by more than 100mg/day at first and following concentrations; consideration might be given to augmentation of Tegretol with Hercules if response to the former mood stabilizer alone is not optimal; hopefully, patient will be able to continue outpatient visits with Mr. Martines if he maintains some OPS patients following transfer to the consultation service as patient has formed a very positive association to and trust in him ( what we used to refer to as "a positive transference") Referred To: patient referred directly back to OPS visits with Lu Martines APRN, resuming on 05/29/2016 at 2:30pm and will begin therapy appointments with Mely Torres LCSW , in OPS on 05/22/2016 at 12:30pm; she will also increase her involvement in/ attendance at local A.A. meetings and contacts with sponsor Copies To: LU CONSTANTINO APRN; DEREK COLINDRES,MADIE
== END 2016-05-12 12:55 | DRG 885 ==
LOC: ERH 15:58 → ENPENDDIS 20:28 → CP SOUTH 20:28 → ERHI 20:28 → EDBEDREQ 20:59 → CP SOUTH 22:36
PROVIDERS: Physician Assistant; ADMIT Psychiatry & Neurology Addiction Medicine
DX: F31.9 Bipolar disorder, unspecified (principal); R45.851 Suicidal ideations; Z72.89 Other problems related to lifestyle
CPT/HCPCS: 36415; 80307; 81003; 93005; 93010; G0480